=== PATIENT | female | born 1985 | race Caucasian/White ===

== ENCOUNTER 2018-11-26 17:50 | Emergency (ER) | payer OTHER ==
[~2018-11-26] VITALS: Ht 182.9 cm; Wt 147.0 kg
[2018-11-26 17:59] VITALS: Ht 182.9 cm; Wt 147.0 kg
[2018-11-26 19:12] VITALS: BP 155/71
== END 2018-11-26 19:12 | disposition home or self-care (01) ==
LOC: ED 17:50
DX: J02.9 Acute pharyngitis, unspecified (principal); Z88.1 Allergy status to other antibiotic agents; Z91.040 Latex allergy status

== ENCOUNTER 2019-07-27 12:47 | Emergency (ER) | payer OTHER ==
[~2019-07-27] VITALS: Ht 182.9 cm; Wt 146.5 kg
[2019-07-27 13:01] VITALS: Ht 182.9 cm; Wt 146.5 kg
[2019-07-27 14:49] LABS: BASOPHIL % 0.3 % (0-2); PLATELET COUNT 306 x10^3mcL (130-400); RED CELL DISTRIBUTION WIDTH 14.6 % (11.5-14.5)
[2019-07-27 15:04] LABS: CARBON DIOXIDE 28.5 mmol/L (21-32); CHLORIDE SERUM 103 mmol/L (98-107); CREATININE SERUM 0.7 mg/dL (0.6-1.0); GFR1 > 60 mL/min; GLUCOSE SERUM 106 mg/dL (74-106); POTASSIUM SERUM 4.2 mmol/L (3.5-5.1); SODIUM SERUM 141 mmol/L (136-145)
[2019-07-27 15:07] LABS: FREE T4 1.02 ng/dL (0.76-1.46); FREE THYROXINE INDEX 2.4 ug/dL (1.4-4.5); T4(THYROXINE) 8.1 ug/dL (4.7-13.3)
[2019-07-27 15:09] LABS: ALBUMIN 3.9 g/dL (3.4-5.0); ALKALINE PHOSPHATASE 87 U/L (46-116); ALT/SGPT 28 U/L (14-59); AST/SGOT 14 U/L (15-37); BILIRUBIN TOTAL 0.2 mg/dL (0.20-1.00); T3 TOTAL 1.56 ng/mL; TOTAL PROTEIN, SERUM 7.7 g/dL (6.4-8.2)
[2019-07-27 18:07] VITALS: BP 149/76
== END 2019-07-27 18:07 | disposition home or self-care (01) ==
LOC: ED 12:47
PROVIDERS: Emergency Medicine
DX: R07.89 Other chest pain (principal); R00.2 Palpitations; R42 Dizziness and giddiness
CPT/HCPCS: 36415; 84439